=== PATIENT | female | born 1960 | race Asian ===

== ENCOUNTER 2023-07-22 20:53 | Emergency (ER) | payer SELFPAY ==
[~2023-07-22] VITALS: Ht 162.6 cm; Wt 62.6 kg
[2023-07-22 21:05] VITALS: BP_SYST 128; PULSE 74; RESP 18; TEMP 97.6; O2SAT 98
[2023-07-22] MEDS ORDERED: NAPR-1172 PO (23:28)
[2023-07-22 23:42] VITALS: BP_SYST 140; PULSE 72; RESP 18; TEMP 97.5; O2SAT 98
== END 2023-07-22 23:42 | disposition home or self-care (01) ==
LOC: SED 20:53
DX: S83.92XA Sprain of unspecified site of left knee, initial encounter (principal); Z79.899 Other long term (current) drug therapy; W19.XXXA Unspecified fall, initial encounter; Y93.89 Activity, other specified; Y92.89 Other specified places as the place of occurrence of the external cause; Y99.8 Other external cause status
CPT/HCPCS: 73564; 99283